=== PATIENT | male | born 1995 ===

== ENCOUNTER → 2019-01-25 | Outpatient (REF) ==
--- NOTE | 2019-01-25 14:37 | REP ---
LEFT FOOT, FOUR VIEWS: HISTORY: Degenerative joint disease. There is no acute fracture or dislocation. The joint spaces are normal in appearance. IMPRESSION: There is no acute fracture or dislocation. Electronically Signed by Jer Collins MD 01/25/2019 02:55 P
== END ==
LOC: M SMT 13:20
PROVIDERS: ATTEND Internal Medicine
DX: M51.36 Other intervertebral disc degeneration, lumbar region (principal)